=== PATIENT | female | born 1985 | race Caucasian/White ===

== ENCOUNTER 2017-05-02 10:04 | Outpatient (CLI) | payer BC ==
--- NOTE | 2017-05-02 11:37 | DIAGNOSTIC IMAGING REPORT ---
PROCEDURE: US OB DETAILED ANATOMIC INDICATION: ANATOMY TECHNIQUE: Glass scale, color, and spectral Doppler images of the second trimester gravid uterus were obtained. COMPARISON: None. FINDINGS: A single living intrauterine is in vertex presentation. There is regular cardiac activity at a rate of 137 beats per minute. The placenta is posterior and fundal and away from the internal cervical os. The cervix is closed measuring approximately 3.6 cm in length. The amniotic fluid volume is subjectively normal. Biparietal diameter 4.6 cm at 19 weeks and 5 days Head circumference 17.2 cm at 19 weeks and 5-day Abdominal circumference 14.5 cm of 19 weeks and 6 days Femur length 3 cm of 19 weeks and 2-day Head to abdominal circumference ratio and femur length to abdominal circumference ratios are normal. Estimated weight 302 g Composite gestational age 19 weeks and 5 days, KENNEDY 09/21/2017 There was visualization of a number of normal structures including the intracranial contents, facial features, nuchal region, spine, four-chamber heart and outflow tracts to the extent that could be visualized, diaphragm, fluid-filled stomach, kidneys, abdomen, urinary bladder, upper and lower extremities, and genitals. A three-vessel umbilical cord, normal and placental cord insertion sites were seen. IMPRESSION: 1. Single living intrauterine with a composite gestational age of 19 weeks and 5 days, KENNEDY 09/21/2017 2. Symmetric and normal anatomy.
== END 2017-05-02 23:00 ==
LOC: US SRH 10:04
DX: Z34.92 Encounter for supervision of normal pregnancy, unspecified, second trimester (principal); Z3A.19 19 weeks gestation of pregnancy